=== PATIENT | female | born 1995 | race Asian ===

== ENCOUNTER 2023-12-11 22:32 | Inpatient (IN) | payer OTHER ==
[2023-12-11 22:55] VITALS: BMI 32.9
[2023-12-11] MEDS ORDERED: ONDANSETRON 4 MG/2 ML VIAL ONE (23:24)
[2023-12-11] MEDS: SODIUM CHLORIDE 1,000 ML IV STA (23:24)
[2023-12-11] MEDS: ONDANSETRON 4 MG/2 ML VIAL IVPUSH ONE (23:31)
[2023-12-11 23:52] LABS: BASO % 0.4 % (0-2.0); HEMATOCRIT 30.9 % (32.4-45.2); HEMOGLOBIN 10.3 GM/dL (10.7-15.3); LYMPH % 8.9 % (8-40); MCH 25.1 pg (25.7-33.7); MCHC 33.2 g/dl (32.0-36.0); MEAN CELL VOLUME 75.6 fl (80-96); MEAN PLT VOLUME 8.6 fl (7.5-11.1); MONO % 16.5 % (3.8-10.2); NEUT % 74.2 % (42.8-82.8); PLATELET COUNT 232 10^3/uL (134-434); RBC 4.09 M/mm3 (3.60-5.2); RDW 17.1 % (11.6-15.6); WHITE BLOOD COUNT 12.9 K/mm3 (4.0-10.0)
[2023-12-12 00:20] LABS: INR 1.31 (0.83-1.09)
[2023-12-12 00:23] LABS: ACTIVATED PTT 35.3 SECONDS (25.2-36.5)
[2023-12-12] MEDS ORDERED: FAMOTIDINE 20 MG/50 ML IVPB 20 MG/50 ML MG IVPB ONE (01:14)
[2023-12-12] MEDS ORDERED: ONDANSETRON 4 MG/2 ML VIAL ONE ×2 (01:14→12:41)
[2023-12-12] MEDS: ONDANSETRON 4 MG/2 ML VIAL IVPUSH ONE (01:20)
[2023-12-12] MEDS: FAMOTIDINE 20 MG/50 ML IVPB 20 MG/50 ML MG IVPB ONE (01:20)
[2023-12-12] MEDS ORDERED: METOCLOPRAMIDE HCL INJECTION 10 MG/2 ML VIAL ONE (02:16)
[2023-12-12] MEDS: METOCLOPRAMIDE HCL INJECTION 10 MG/2 ML VIAL IVPUSH ONE (02:20)
[2023-12-12 02:27] LABS: CHLORIDE 98 mmol/L (98-107); POTASSIUM 3.2 mmol/L (3.5-5.1); SODIUM 134 mmol/L (136-145)
[2023-12-12 02:29] LABS: ALBUMIN 2.6 g/dl (3.4-5.0); ANION GAP 9 mmol/L (4-13); BLOOD UREA NITROGEN 11.1 mg/dL (7-18); CO2 27 mmol/L (21-32); GLUCOSE,RANDOM 118 mg/dL (74-106)
[2023-12-12 02:32] LABS: CREATININE 1.1 mg/dL (0.55-1.3); SGOT/AST 13 U/L (15-37); SGPT/ALT 15 U/L (13-61)
[2023-12-12 02:34] LABS: BILIRUBIN,TOTAL 0.8 mg/dL (0.2-1); TOT PROT 6.1 g/dl (6.4-8.2)
[2023-12-12 02:35] LABS: ALK PHOS 63 U/L (45-117)
[2023-12-12 02:48] LABS: CALCIUM 6.9 mg/dL (8.5-10.1)
[2023-12-12 03:08] LABS: MAGNESIUM 1.3 mg/dL (1.8-2.4)
[2023-12-12 03:12] LABS: PHOSPHOROUS 2.3 mg/dL (2.5-4.9)
[2023-12-12] MEDS: KCL 20 MEQ PREMIX BAG 20 MEQ/100 ML INFUS.BAG IVPB SCH (03:56)
[2023-12-12] MEDS: KCL 10 MEQ IVPB 10 MEQ/100 ML INFUS.BAG IVPB SCH (04:26)
[2023-12-12 04:29] LABS: URINE APPEARANCE CLEAR; URINE BILIRUBIN NEGATIVE (NEGATIVE); URINE COLOR YELLOW; URINE GLUCOSE (UA) NEGATIVE (NEGATIVE); URINE KETONE TRACE (NEGATIVE); URINE LEUK ESTERASE 1+ (NEGATIVE); URINE NITRITE NEGATIVE (NEGATIVE); URINE PROTEIN 1+ (NEGATIVE)
[2023-12-12 06:01] LABS: EPI CELLS 2 /uL (0-25.1); URINE BACTERIA 8240 /uL (0-1359); URINE RBC 60 /uL (0-23.9); URINE WBC 276 /uL (0-25.8)
[2023-12-12] MEDS ORDERED: ACETAMINOPHEN INJECTION 100 ML IVPB ONE (06:31)
[2023-12-12] MEDS: ACETAMINOPHEN 1000 MG/100 ML BAG IVPB ONE (07:08)
[2023-12-12] MEDS: SODIUM CHLORIDE 1,000 ML IV STA (07:09)
[2023-12-12] MEDS ORDERED: CEFTRIAXONE 1 GM/50 ML BAG ONE (07:33)
[2023-12-12] MEDS ORDERED: MAGNESIUM 1GM/D5W - 1 GM/100 ML IVPB IVPB ONE ×2 (07:33→10:38)
[2023-12-12] MEDS: MAGNESIUM 1GM/D5W - 1 GM/100 ML IVPB IVPB ONE (07:45)
[2023-12-12] MEDS: LACTATED RINGERS SOLUTION 1,000 ML/1,000 ML INFUS.BAG IV STA (09:36)
[2023-12-12] MEDS: NAPH,MB-DB/K PH,MBDB POWDER PACKET PO ONE (09:45)
[2023-12-12] MEDS: MAGNESIUM SULF 50% (8.12 MEQ/2 ML-1 GM VIAL) IVPB ONE ×2 (10:56→20:27)
[2023-12-12] MEDS: POTASSIUM CHLORIDE ORAL LIQUID 20 MEQ/15 ML PO ONE (10:56)
[2023-12-12] MEDS: MAGNESIUM 1GM/D5W 100ML - 100 ML IVPB IVPB ONE (11:32)
[2023-12-12] MEDS: ONDANSETRON 4 MG/2 ML VIAL IVPUSH PRN (12:45)
[2023-12-12] MEDS ORDERED: NAPH,MB-DB/K PH,MBDB POWDER PACKET ONE (13:04)
[2023-12-12] MEDS ORDERED: KCL 10 MEQ IVPB 10 MEQ/100 ML INFUS.BAG IVPB ONE (14:43)
[2023-12-12 15:58] LABS: CHLORIDE 100 mmol/L (98-107); SODIUM 135 mmol/L (136-145)
[2023-12-12 16:01] LABS: BLOOD UREA NITROGEN 7.8 mg/dL (7-18); CO2 25 mmol/L (21-32); GLUCOSE,RANDOM 132 mg/dL (74-106)
[2023-12-12 16:02] LABS: MAGNESIUM 1.8 mg/dL (1.8-2.4)
[2023-12-12 16:05] LABS: PHOSPHOROUS 1.6 mg/dL (2.5-4.9)
[2023-12-12 16:07] LABS: ANION GAP 10 mmol/L (4-13); POTASSIUM 2.8 mmol/L (3.5-5.1)
[2023-12-12] MEDS ORDERED: POTASSIUM CHLORIDE ORAL LIQUID 20 MEQ/15 ML ONE (16:38)
[2023-12-12] MEDS: NAPH,MB-DB/K PH,MBDB POWDER PACKET PO SCH (16:40)
[2023-12-12] MEDS: POTASSIUM CHLORIDE ORAL LIQUID 20 MEQ/15 ML PO SCH (16:43)
[2023-12-12] MEDS ORDERED: MAGNESIUM SULFATE IN WATER 2 GM/50 ML IVPB IVPB ONE (17:21)
[2023-12-12] MEDS: ACETAMINOPHEN 1000 MG/100 ML BAG IVPB PRN (23:22)
[2023-12-13 09:27] LABS: BASO % 0.5 % (0-2.0); EOS % 0.1 % (0-4.5); HEMATOCRIT 29.4 % (32.4-45.2); HEMOGLOBIN 9.9 GM/dL (10.7-15.3); LYMPH % 17.5 % (8-40); MCH 25.7 pg (25.7-33.7); MCHC 33.7 g/dl (32.0-36.0); MEAN CELL VOLUME 76.2 fl (80-96); MEAN PLT VOLUME 8.4 fl (7.5-11.1); MONO % 15.5 % (3.8-10.2); NEUT % 66.4 % (42.8-82.8); PLATELET COUNT 280 10^3/uL (134-434); RBC 3.86 M/mm3 (3.60-5.2); RDW 17.2 % (11.6-15.6); WHITE BLOOD COUNT 9.6 K/mm3 (4.0-10.0)
[2023-12-13 09:34] LABS: INR 1.31 (0.83-1.09); PROTHROMBIN TIME (PATIENT) 14.9 SEC (9.7-13.0)
[2023-12-13 09:48] LABS: POTASSIUM 3.4 mmol/L (3.5-5.1)
[2023-12-13 09:56] LABS: ALBUMIN 2.7 g/dl (3.4-5.0)
[2023-12-13 09:57] LABS: BLOOD UREA NITROGEN 5.5 mg/dL (7-18); MAGNESIUM 2.1 mg/dL (1.8-2.4)
[2023-12-13] MEDS: NAPH,MB-DB/K PH,MBDB POWDER PACKET PO SCH (09:57)
[2023-12-13] MEDS: SODIUM CHLORIDE 1,000 ML IV SCH (09:57)
[2023-12-13] MEDS: CEFTRIAXONE 1 GM in DEXTROSE 5%-WATER - 50 ML IVPB SCH (09:58)
[2023-12-13 10:00] LABS: CREATININE 0.9 mg/dL (0.55-1.3)
[2023-12-13 10:02] LABS: BILIRUBIN,TOTAL 0.6 mg/dL (0.2-1); TOT PROT 6.4 g/dl (6.4-8.2)
[2023-12-13] MEDS: CALCIUM GLUC IN NACL, ISO-OSM 1 GM/50 ML BAG IVPB ONE (11:40)
[2023-12-13] MEDS: CALCIUM CHLORIDE 10% 1 GM/10 ML *VIAL IVPB ONE (12:23)
[2023-12-13] MEDS: ENOXAPARIN NA (PORCINE) 40 MG/0.4 ML DISP.SYRIN SQ SCH (15:44)
[2023-12-13] MEDS: POTASSIUM CHLORIDE ORAL LIQUID 20 MEQ/15 ML PO ONE (16:39)
[2023-12-13 16:50] LABS: METHADONE, UR NEGATIVE (NEGATIVE); URINE AMPHETAMINES NEGATIVE (NEGATIVE)
[2023-12-13 16:51] LABS: PHENCYCLIDINE,URINE NEGATIVE (NEGATIVE); URINE BARBITURATES NEGATIVE (NEGATIVE)
[2023-12-13 17:08] LABS: COCAINE, UR NEGATIVE (NEGATIVE); OPIATES, URI NEGATIVE (NEGATIVE); URINE BENZODIAZEPINES NEGATIVE (NEGATIVE)
[2023-12-14 09:17] LABS: CALCIUM 7.8 mg/dL (8.5-10.1)
[2023-12-14 09:21] LABS: PHOSPHOROUS 1.4 mg/dL (2.5-4.9)
[2023-12-14] MEDS ORDERED: ACETAMINOPHEN 325 MG TABLET (FP) PO PRN (10:07)
[2023-12-14] MEDS: PIPERACILLIN/TAZOB 3.375 GM 3.375 GM in DEXTROSE 5%-WATER - 50 ML IVPB SCH (11:36)
[2023-12-14 22:16] VITALS: RESP 18
[2023-12-15 08:56] LABS: HEMATOCRIT 29.1 % (32.4-45.2); HEMOGLOBIN 9.8 GM/dL (10.7-15.3); MCH 25.5 pg (25.7-33.7); MCHC 33.8 g/dl (32.0-36.0); MEAN CELL VOLUME 75.6 fl (80-96); PLATELET COUNT 418 10^3/uL (134-434); RBC 3.84 M/mm3 (3.60-5.2); RDW 17.5 % (11.6-15.6); WHITE BLOOD COUNT 4.7 K/mm3 (4.0-10.0)
[2023-12-15 09:19] LABS: CHLORIDE 102 mmol/L (98-107); POTASSIUM 3.4 mmol/L (3.5-5.1); SODIUM 138 mmol/L (136-145)
[2023-12-15 09:23] LABS: ANION GAP 10 mmol/L (4-13); CO2 27 mmol/L (21-32); GLUCOSE,RANDOM 103 mg/dL (74-106); MAGNESIUM 1.5 mg/dL (1.8-2.4)
[2023-12-15 09:25] LABS: CREATININE 0.7 mg/dL (0.55-1.3); PHOSPHOROUS 2.8 mg/dL (2.5-4.9)
[2023-12-15 09:46] LABS: BLOOD UREA NITROGEN 2.6 mg/dL (7-18)
[2023-12-15] MEDS: POTASSIUM CHLORIDE ORAL LIQUID 20 MEQ/15 ML PO ONE (11:20)
[2023-12-15 15:04] VITALS: BP 108/72; PULSE 82; TEMP 98.8
== END 2023-12-15 18:18 | disposition home or self-care (01) | DRG 690 ==
LOC: JER 22:32 → INTOOBSV 12-12 06:02 → UNDOADMOB 12-12 06:02 → JERBED 12-12 06:02 → J7W 12-12 18:42 → OBSVTOIN 12-14 14:02
PROVIDERS: ADMIT Internal Medicine; ATTEND Internal Medicine
DX: N10 Acute pyelonephritis (principal); E87.1 Hypo-osmolality and hyponatremia; E83.39 Other disorders of phosphorus metabolism; E87.6 Hypokalemia; B96.20 Unspecified Escherichia coli [E. coli] as the cause of diseases classified elsewhere; R11.2 Nausea with vomiting, unspecified
CPT/HCPCS: 0241U-QW; 36415; 71045-TC-FY; 74177-TC; 76775-TC; 80048; 80053; 80307; 81003; 82310; 82962; 83690; 83735; 84100; 84702; 84703; 85025; 85027; 85610; 85730; 86850; 86900; 86901; 87040; 87045; 87046; 87086; 87186; 87324; 87449; 93005; 93010; 99285-25; G0378; J0131; Q9967